=== PATIENT | female | born 1980 | race Caucasian/White ===

== ENCOUNTER 2017-08-18 08:30 | Day surgery (SDC) | payer MEDICAID ==
[2017-08-16 12:07] LABS: BASOPHILS # (AUTO) 0.1 X10'3 (0-0.2); EOSINOPHILS # (AUTO) 0.4 X10'3 (0-0.9); EOSINOPHILS % (AUTO) 4.1 % (0-6); HEMATOCRIT 36.7 % (35.0-45.0); LYMPHOCYTES # (AUTO) 2.4 X10'3 (1.1-4.8); LYMPHOCYTES % (AUTO) 24.1 % (21-51); MEAN CORPUSCULAR HEMOGLOBIN 32.4 PG (27.0-31.0); MEAN CORPUSCULAR HGB CONC 35.3 % (33.0-36.5); MEAN CORPUSCULAR VOLUME 91.7 FL (78-98); MEAN PLATELET VOLUME 7.5 FL (7.4-10.4); MONOCYTES # (AUTO) 0.4 X10'3 (0-0.9); MONOCYTES % (AUTO) 3.7 % (2-12); NEUTROPHILS # (AUTO) 6.6 X10'3 (1.8-7.7); NEUTROPHILS % (AUTO) 67.1 % (42-75); PLATELET COUNT 298 X10'3 (140-440); RED CELL DISTRIBUTION WIDTH 13.3 % (11.5-14.5); WHITE BLOOD COUNT 9.9 X10'3 (4.5-11.0)
[2017-08-16 12:17] LABS: PARTIAL THROMBOPLASTIN TIME 27 SECONDS (22-32)
[2017-08-16 12:24] LABS: ALANINE AMINOTRANSFERASE 51 U/L (12-78); ALBUMIN 3.6 G/DL (3.4-5.0); ALBUMIN/GLOBULIN RATIO 0.9 (1.1-1.5); ALKALINE PHOSPHATASE 69 IU/L (46-116); ANION GAP 10 (8-16); ASPARTATE AMINO TRANSFERASE 21 U/L (10-37); BILIRUBIN,TOTAL 0.3 MG/DL (0.1-1.0); BLOOD UREA NITROGEN 9 MG/DL (7-18); BUN/CREATININE RATIO 14.5 (6.6-38.0); CALCIUM 8.8 MG/DL (8.5-10.1); CHLORIDE 104 MMOL/L (99-107); CREATININE 0.62 MG/DL (0.40-0.90); GLUCOSE 96 MG/DL (70-104); POTASSIUM 4.2 MMOL/L (3.5-5.1); SODIUM 142 MMOL/L (135-145); TOTAL CARBON DIOXIDE 28.5 MMOL/L (24-32); TOTAL PROTEIN 7.5 G/DL (6.4-8.2); eGFR > 90 ML/MIN
[~2017-08-18] VITALS: Ht 154.9 cm; Wt 95.7 kg
[2017-08-18] VITALS (13 sets, daily range): BP systolic 95–133; BP diastolic 56–86
[~2017-08-18 08:30] MED LIST: CEPH500C5 PO; CYCL-1 PO; HYDR-565 PO; IBUP-1986 PO; ONDA4TAB6 PO; PHEN-716 PO
[2017-08-18] MEDS ORDERED: LORA-269 PO (09:03)
[2017-08-18] MEDS ORDERED: ASPI-1265 PO (09:03)
[2017-08-18] MEDS ORDERED: ERGO400C (09:03)
[2017-08-18] MEDS ORDERED: PANT-47 PO (09:03)
[2017-08-18] MEDS ORDERED: NITR0.4T51 SL (09:08)
[2017-08-18] MEDS ORDERED: HYDR-569 PO (09:08)
[2017-08-18] MEDS ORDERED: MESSAGE TO PHARMACY PO ONE (09:20)
[2017-08-18] MEDS ORDERED: simethicone 125mg capsule PO ONE (09:45)
[2017-08-18] MEDS ORDERED: diphenhydrAMINE 25mg capsule PO PRN (09:55)
[2017-08-18] MEDS ORDERED: normal saline 1000ml 1,000 ML IV SCH ×2 (09:55→12:00)
[2017-08-18] MEDS ORDERED: LORazepam 0.5 MG tablet PO PRN (09:55)
[2017-08-18] MEDS ORDERED: nitroGLYCERIN 0.4mg SUBLingual tab SL PRN (09:55)
[2017-08-18] MEDS ORDERED: iohexol 350 MG/ML 50ML vial IV ONE ×2 (10:19→10:32)
[2017-08-18] MEDS ORDERED: LIDOcaine 1%/PF (10mg/ml) 5ml vial ONE ×2 (10:19→10:32)
[2017-08-18] MEDS ORDERED: midazolam 2 mg/2 ml injection ONE ×2 (10:32→10:40)
[2017-08-18] MEDS ORDERED: iohexol 350MG/ML 100ml bottle IV ONE (10:32)
[2017-08-18] MEDS ORDERED: heparin 1,000 UNITS/NS 500ml 500 ML ONE ×2 (10:32)
[2017-08-18] MEDS ORDERED: fentaNYL/PF 50MCG/1 ML 2ML syringe ONE ×2 (10:32→10:39)
[2017-08-18] MEDS ORDERED: proCHLORperazine 10 MG/2 ml inj ONE (10:45)
[2017-08-18] MEDS ORDERED: ondansetron/PF 4mg/2ml inj IV PRN (12:00)
[2017-08-18] MEDS ORDERED: morphine 2 MG/ML inj. syringe IV PRN (12:00)
[2017-08-18] MEDS ORDERED: HYDROcodone/acetaminophen 10/325mg tab PO PRN (12:00)
[2017-08-18] MEDS ORDERED: HYDROcodone/acetaminophen 5mg/325mg tablet PO PRN (12:00)
[2017-08-18] MEDS ORDERED: OXAZEpam 15mg capsule PO PRN (12:00)
[2017-08-18] MEDS ORDERED: proCHLORperazine 10 MG/2 ml inj IV PRN (12:00)
[2017-08-18] MEDS ORDERED: ACETYLCYSTEINE 200 MG/1 ML 4 ML ORAL SOLUTION PO SCH (20:00)
== END 2017-08-18 17:51 | disposition home or self-care (01) ==
LOC: SSTAY O 08:30
PROVIDERS: ATTEND Internal Medicine Cardiovascular Disease
DX: I25.10 Atherosclerotic heart disease of native coronary artery without angina pectoris (principal); R94.39 Abnormal result of other cardiovascular function study; F41.8 Other specified anxiety disorders; F11.20 Opioid dependence, uncomplicated; F17.210 Nicotine dependence, cigarettes, uncomplicated; Z72.89 Other problems related to lifestyle; Z98.890 Other specified postprocedural states; Z79.01 Long term (current) use of anticoagulants
CPT/HCPCS: 36415; 71046; 80053; 85025; 85610; 85730; 93458; 99152; 99153; A6257; C1760; C1769; J0780; J1644; J2001; J2250; J3010; J7030; Q0163; Q9967; A4620

== ENCOUNTER 2018-05-12 16:46 | Emergency (ER) | payer MEDICAID ==
[~2018-05-12] VITALS: Ht 154.9 cm; Wt 95.5 kg
[~2018-05-12 16:46] MED LIST changes: +ASPI-1265 PO; -CEPH500C5 PO; -CYCL-1 PO; +ERGO400C; +HYDR-4383 PO; -HYDR-565 PO; -IBUP-1986 PO; +LORA-269 PO; +NITR0.4T51 SL; -ONDA4TAB6 PO; +PANT-47 PO; -PHEN-716 PO
[2018-05-12 17:07] VITALS: BP 119/83
[2018-05-12 17:33] LABS: BASOPHILS # (AUTO) 0.2 X10'3 (0-0.2); BASOPHILS % (AUTO) 1.3 % (0-1); EOSINOPHILS # (AUTO) 0.2 X10'3 (0-0.9); EOSINOPHILS % (AUTO) 1.8 % (0-6); HEMATOCRIT 37.9 % (35.0-45.0); MEAN CORPUSCULAR HEMOGLOBIN 31.9 PG (27.0-31.0); MEAN CORPUSCULAR HGB CONC 34.4 % (33.0-36.5); MEAN CORPUSCULAR VOLUME 92.9 FL (78-98); MEAN PLATELET VOLUME 7.7 FL (7.4-10.4); MONOCYTES # (AUTO) 0.4 X10'3 (0-0.9); MONOCYTES % (AUTO) 3.3 % (2-12); NEUTROPHILS # (AUTO) 8.1 X10'3 (1.8-7.7); NEUTROPHILS % (AUTO) 68.6 % (42-75); PLATELET COUNT 387 X10'3 (140-440); RED BLOOD COUNT 4.07 X10'6 (4.20-5.60); RED CELL DISTRIBUTION WIDTH 12.9 % (11.5-14.5); WHITE BLOOD COUNT 11.9 X10'3 (4.5-11.0)
[2018-05-12 17:51] LABS: ALANINE AMINOTRANSFERASE 47 U/L (12-78); ALBUMIN 3.8 G/DL (3.4-5.0); ALKALINE PHOSPHATASE 75 IU/L (46-116); ANION GAP 6 (8-16); ASPARTATE AMINO TRANSFERASE 23 U/L (10-37); BILIRUBIN,TOTAL 0.4 MG/DL (0.1-1.0); BLOOD UREA NITROGEN 15 MG/DL (7-18); BUN/CREATININE RATIO 20.5 (6.6-38.0); CALCIUM 9.4 MG/DL (8.5-10.1); CHLORIDE 101 MMOL/L (99-107); CREATININE 0.73 MG/DL (0.40-0.90); GLUCOSE 152 MG/DL (70-104); POTASSIUM 3.9 MMOL/L (3.5-5.1); SODIUM 136 MMOL/L (135-145); TOTAL CARBON DIOXIDE 28.8 MMOL/L (24-32); TOTAL PROTEIN 7.7 G/DL (6.4-8.2); eGFR 89 ML/MIN
[2018-05-12 18:33] LABS: PARTIAL THROMBOPLASTIN TIME 29 SECONDS (22-32); PROTHROMBIN TIME 10.5 SECONDS (9.0-12.0)
== END 2018-05-12 18:22 | disposition home or self-care (01) ==
LOC: ER 16:47
DX: R00.2 Palpitations (principal); R73.9 Hyperglycemia, unspecified; R42 Dizziness and giddiness; G89.29 Other chronic pain; Z90.49 Acquired absence of other specified parts of digestive tract; Z98.51 Tubal ligation status; Z79.82 Long term (current) use of aspirin; Z79.899 Other long term (current) drug therapy
CPT/HCPCS: 36415; 71045; 80053; 84484; 85025; 85610; 85730; 93005; 99284

== ENCOUNTER 2018-05-26 14:41 | Emergency (ER) | payer MEDICAID ==
[~2018-05-26] VITALS: Ht 154.9 cm; Wt 95.5 kg
[2018-05-26 14:57] VITALS: BP 118/74
== END 2018-05-26 18:30 | disposition left against medical advice (07) ==
LOC: ER 14:41
DX: R55 Syncope and collapse (principal); Z53.21 Procedure and treatment not carried out due to patient leaving prior to being seen by health care provider
CPT/HCPCS: 82948; 93005; 99281

== ENCOUNTER 2018-06-19 23:02 | Emergency (ER) | payer MEDICAID, OTHER ==
[~2018-06-19] VITALS: Ht 154.9 cm; Wt 93.9 kg
[2018-06-19 23:37] LABS: BASOPHILS # (AUTO) 0.1 X10'3 (0-0.2); BASOPHILS % (AUTO) 0.6 % (0-1); EOSINOPHILS # (AUTO) 0.2 X10'3 (0-0.9); HEMATOCRIT 37.6 % (35.0-45.0); HEMOGLOBIN 12.6 g/dl (12.0-16.0); LYMPHOCYTES # (AUTO) 4.2 X10'3 (1.1-4.8); LYMPHOCYTES % (AUTO) 33.9 % (21-51); MEAN CORPUSCULAR HEMOGLOBIN 31.3 PG (27.0-31.0); MEAN CORPUSCULAR HGB CONC 33.4 % (33.0-36.5); MEAN CORPUSCULAR VOLUME 93.8 FL (78-98); MEAN PLATELET VOLUME 7.6 FL (7.4-10.4); MONOCYTES # (AUTO) 0.7 X10'3 (0-0.9); MONOCYTES % (AUTO) 5.7 % (2-12); NEUTROPHILS # (AUTO) 7.1 X10'3 (1.8-7.7); NEUTROPHILS % (AUTO) 57.8 % (42-75); PLATELET COUNT 357 X10'3 (140-440); RED BLOOD COUNT 4.01 X10'6 (4.20-5.60); RED CELL DISTRIBUTION WIDTH 13.7 % (11.5-14.5); WHITE BLOOD COUNT 12.3 X10'3 (4.5-11.0)
[2018-06-19] MEDS ORDERED: DICL25TA10 (23:42)
[2018-06-19] MEDS ORDERED: LORA0.5T PO (23:42)
[2018-06-19] MEDS ORDERED: OMEP20CA10 PO (23:42)
[2018-06-19] MEDS ORDERED: PROP40TA72 PO (23:42)
[2018-06-19 23:46] LABS: PARTIAL THROMBOPLASTIN TIME 28 SECONDS (22-32)
[2018-06-19 23:53] LABS: ALANINE AMINOTRANSFERASE 38 U/L (12-78); ALBUMIN 3.5 G/DL (3.4-5.0); ALBUMIN/GLOBULIN RATIO 0.9 (1.1-1.5); ALKALINE PHOSPHATASE 81 IU/L (46-116); ANION GAP 12 (8-16); ASPARTATE AMINO TRANSFERASE 15 U/L (10-37); BILIRUBIN,TOTAL 0.3 MG/DL (0.1-1.0); BLOOD UREA NITROGEN 12 MG/DL (7-18); BUN/CREATININE RATIO 17.6 (6.6-38.0); CALCIUM 8.6 MG/DL (8.5-10.1); CHLORIDE 103 MMOL/L (99-107); CREATININE 0.68 MG/DL (0.40-0.90); GLUCOSE 100 MG/DL (70-104); POTASSIUM 3.8 MMOL/L (3.5-5.1); SODIUM 140 MMOL/L (135-145); TOTAL CARBON DIOXIDE 25.2 MMOL/L (24-32); TOTAL PROTEIN 7.4 G/DL (6.4-8.2); eGFR > 90 ML/MIN
[2018-06-20 00:58] VITALS: BP 128/84
== END 2018-06-20 01:01 | disposition home or self-care (01) ==
LOC: ER 23:02
DX: R07.89 Other chest pain (principal); R11.0 Nausea; G89.29 Other chronic pain; Z90.49 Acquired absence of other specified parts of digestive tract; Z98.51 Tubal ligation status; Z79.899 Other long term (current) drug therapy
CPT/HCPCS: 36415; 71045; 80053; 84484; 85025; 85610; 85730; 93005; 99284

== ENCOUNTER 2018-08-19 09:09 | Emergency (ER) | payer MEDICAID ==
[~2018-08-19] VITALS: Ht 154.9 cm; Wt 98.0 kg
[~2018-08-19 09:09] MED LIST changes: -ASPI-1265 PO; +DICL25TA10; -LORA-269 PO; +LORA0.5T PO; +OMEP20CA10 PO; -PANT-47 PO; +PROP40TA72 PO
[2018-08-19] MEDS ORDERED: normal saline 1000ml 1,000 ML IV ONE (10:20)
[2018-08-19 10:29] LABS: BASOPHILS # (AUTO) 0.1 X10'3 (0-0.2); EOSINOPHILS # (AUTO) 0.1 X10'3 (0-0.9); HEMATOCRIT 37.4 % (35.0-45.0); HEMOGLOBIN 12.8 g/dl (12.0-16.0); LYMPHOCYTES # (AUTO) 2.1 X10'3 (1.1-4.8); LYMPHOCYTES % (AUTO) 20.8 % (21-51); MEAN CORPUSCULAR HEMOGLOBIN 32.1 PG (27.0-31.0); MEAN CORPUSCULAR HGB CONC 34.1 g/dL (33.0-36.5); MEAN CORPUSCULAR VOLUME 94.1 FL (78-98); MEAN PLATELET VOLUME 7.6 FL (7.4-10.4); MONOCYTES # (AUTO) 0.6 X10'3 (0-0.9); MONOCYTES % (AUTO) 5.4 % (2-12); NEUTROPHILS # (AUTO) 7.3 X10'3 (1.8-7.7); NEUTROPHILS % (AUTO) 71.8 % (42-75); PLATELET COUNT 331 X10'3 (140-440); RED BLOOD COUNT 3.98 X10'6 (4.20-5.60); RED CELL DISTRIBUTION WIDTH 13.3 % (11.5-14.5); WHITE BLOOD COUNT 10.2 X10'3 (4.5-11.0)
[2018-08-19 10:30] LABS: CLARITY,URINE CLEAR (Clear); COLOR,URINE YELLOW (Yellow); GLUCOSE, URINE NEGATIVE (Neg); KETONES,URINE NEGATIVE (Neg); LEUKOCYTE ESTERASE ,URINE NEGATIVE (Neg); NITRITES, URINE NEGATIVE (Neg); OCCULT BLOOD,URINE MODERATE (Neg); PROTEIN,URINE NEGATIVE (Neg); UROBILINOGEN,URINE 0.2 E.U/dL (0.2-1.0)
[2018-08-19 10:34] LABS: UA COLLECTION TYPE CLN CATCH MIDSTREAM
[2018-08-19 10:36] LABS: RBC,URINE NONE SEEN /HPF (0-2); WBC,URINE NONE SEEN /HPF (0-4)
[2018-08-19 10:37] LABS: BACTERIA,URINE NONE SEEN /HPF (Neg); SQUAMOUS EPITHELIAL CELL,UR FEW /LPF (FEW)
[2018-08-19 10:45] LABS: ALANINE AMINOTRANSFERASE 38 U/L (12-78); ALBUMIN 3.8 G/DL (3.4-5.0); ALKALINE PHOSPHATASE 90 IU/L (46-116); ANION GAP 10 (8-16); ASPARTATE AMINO TRANSFERASE 16 U/L (10-37); BILIRUBIN,TOTAL 0.2 MG/DL (0.1-1.0); BLOOD UREA NITROGEN 17 MG/DL (7-18); BUN/CREATININE RATIO 19.8 (6.6-38.0); CALCIUM 8.8 MG/DL (8.5-10.1); CHLORIDE 104 MMOL/L (99-107); CREATININE 0.86 MG/DL (0.40-0.90); GLUCOSE 104 MG/DL (70-104); POTASSIUM 4.2 MMOL/L (3.5-5.1); SODIUM 138 MMOL/L (135-145); TOTAL CARBON DIOXIDE 23.8 MMOL/L (24-32); TOTAL PROTEIN 7.6 G/DL (6.4-8.2); eGFR 74 ML/MIN
[2018-08-19] MEDS ORDERED: dexamethasone sod phosphate 10mg/ml inj IV STA (12:11)
[2018-08-19] MEDS ORDERED: ALBU18HF2 INH (12:14)
[2018-08-19] MEDS ORDERED: albuterol 2.5 MG/3 ML nebule NEB ONE (12:15)
[2018-08-19] MEDS ORDERED: ondansetron/PF 4mg/2ml inj IV ONE (13:00)
[2018-08-19 13:05] VITALS: BP 118/74
== END 2018-08-19 13:11 | disposition home or self-care (01) ==
LOC: ER 09:10
DX: J20.9 Acute bronchitis, unspecified (principal); G89.29 Other chronic pain; Z90.49 Acquired absence of other specified parts of digestive tract; Z98.51 Tubal ligation status; Z79.899 Other long term (current) drug therapy
CPT/HCPCS: 36415; 71045; 80053; 81001; 83880; 84484; 85025; 93005; 94640; 94760; 96374; 96375; 99284; J1100; J2405; J7030

== ENCOUNTER 2018-09-14 18:47 | Emergency (ER) | payer MEDICAID ==
[~2018-09-14] VITALS: Ht 154.9 cm; Wt 95.2 kg
[~2018-09-14 18:47] MED LIST changes: +ALBU18HF2 INH
[2018-09-14 19:21] LABS: BASOPHILS # (AUTO) 0.1 X10'3 (0-0.2); BASOPHILS % (AUTO) 0.8 % (0-1); EOSINOPHILS # (AUTO) 0.2 X10'3 (0-0.9); EOSINOPHILS % (AUTO) 1.6 % (0-6); HEMATOCRIT 36.7 % (35.0-45.0); HEMOGLOBIN 12.7 g/dl (12.0-16.0); LYMPHOCYTES # (AUTO) 2.7 X10'3 (1.1-4.8); LYMPHOCYTES % (AUTO) 28.6 % (21-51); MEAN CORPUSCULAR HEMOGLOBIN 32.6 PG (27.0-31.0); MEAN CORPUSCULAR HGB CONC 34.7 g/dL (33.0-36.5); MEAN CORPUSCULAR VOLUME 94.1 FL (78-98); MEAN PLATELET VOLUME 7.1 FL (7.4-10.4); MONOCYTES # (AUTO) 0.4 X10'3 (0-0.9); MONOCYTES % (AUTO) 4.1 % (2-12); NEUTROPHILS # (AUTO) 6.2 X10'3 (1.8-7.7); NEUTROPHILS % (AUTO) 64.9 % (42-75); PLATELET COUNT 366 X10'3 (140-440); RED CELL DISTRIBUTION WIDTH 13.3 % (11.5-14.5); WHITE BLOOD COUNT 9.5 X10'3 (4.5-11.0)
[2018-09-14 19:29] LABS: PARTIAL THROMBOPLASTIN TIME 28 SECONDS (22-32); PROTHROMBIN TIME 10.1 SECONDS (9.0-12.0)
[2018-09-14 19:31] LABS: ALANINE AMINOTRANSFERASE 52 U/L (12-78); ALBUMIN 3.7 G/DL (3.4-5.0); ALBUMIN/GLOBULIN RATIO 0.9 (1.1-1.5); ALKALINE PHOSPHATASE 82 IU/L (46-116); ANION GAP 7 (8-16); ASPARTATE AMINO TRANSFERASE 30 U/L (10-37); BILIRUBIN,TOTAL 0.4 MG/DL (0.1-1.0); BLOOD UREA NITROGEN 9 MG/DL (7-18); BUN/CREATININE RATIO 12.3 (6.6-38.0); CHLORIDE 103 MMOL/L (99-107); CREATININE 0.73 MG/DL (0.40-0.90); GLUCOSE 91 MG/DL (70-104); POTASSIUM 3.7 MMOL/L (3.5-5.1); SODIUM 138 MMOL/L (135-145); TOTAL CARBON DIOXIDE 27.7 MMOL/L (24-32); TOTAL PROTEIN 7.6 G/DL (6.4-8.2); eGFR 89 ML/MIN
[2018-09-14] MEDS ORDERED: mag hydrox/Alum hydrox/simeth 30ml oral suspension PO ONE (19:45)
[2018-09-14] MEDS ORDERED: ketorolac trometh inj. 60 MG/2 ML VIAL IM ONE (19:45)
[2018-09-14] MEDS ORDERED: LIDOcaine Viscous 15ml cup PO ONE (19:45)
[2018-09-14] MEDS ORDERED: ESOM40CA PO (20:27)
[2018-09-14 20:31] VITALS: BP 146/85
== END 2018-09-14 20:34 | disposition home or self-care (01) ==
LOC: ER 18:47
DX: R07.89 Other chest pain (principal); R10.13 Epigastric pain; R20.0 Anesthesia of skin; M25.512 Pain in left shoulder; G89.29 Other chronic pain; Z87.442 Personal history of urinary calculi; Z90.49 Acquired absence of other specified parts of digestive tract; Z98.51 Tubal ligation status; Z79.899 Other long term (current) drug therapy
CPT/HCPCS: 36415; 71045; 80053; 84484; 85025; 85610; 85730; 93005; 96372; 99284; J1885

== ENCOUNTER 2018-11-19 14:24 | Emergency (ER) | payer MEDICAID ==
[~2018-11-19] VITALS: Ht 154.9 cm; Wt 97.2 kg
[~2018-11-19 14:24] MED LIST changes: +BISA-155 PO; -OMEP20CA10 PO; +OMEP20CA11 PO
[2018-11-19 15:07] LABS: BASOPHILS # (AUTO) 0.1 X10'3 (0-0.2); BASOPHILS % (AUTO) 0.9 % (0-1); EOSINOPHILS # (AUTO) 0.3 X10'3 (0-0.9); EOSINOPHILS % (AUTO) 3.3 % (0-6); HEMATOCRIT 34.2 % (35.0-45.0); HEMOGLOBIN 11.9 g/dl (12.0-16.0); LYMPHOCYTES # (AUTO) 3.6 X10'3 (1.1-4.8); LYMPHOCYTES % (AUTO) 35.3 % (21-51); MEAN CORPUSCULAR HEMOGLOBIN 33.4 PG (27.0-31.0); MEAN CORPUSCULAR HGB CONC 34.7 g/dL (33.0-36.5); MEAN CORPUSCULAR VOLUME 96.1 FL (78-98); MEAN PLATELET VOLUME 7.2 FL (7.4-10.4); MONOCYTES # (AUTO) 0.4 X10'3 (0-0.9); MONOCYTES % (AUTO) 4.2 % (2-12); NEUTROPHILS # (AUTO) 5.7 X10'3 (1.8-7.7); NEUTROPHILS % (AUTO) 56.3 % (42-75); PLATELET COUNT 301 X10'3 (140-440); RED BLOOD COUNT 3.57 X10'6 (4.20-5.60); RED CELL DISTRIBUTION WIDTH 13.2 % (11.5-14.5); WHITE BLOOD COUNT 10.1 X10'3 (4.5-11.0)
[2018-11-19 15:09] LABS: CLARITY,URINE CLEAR (Clear); COLOR,URINE STRAW (Yellow); GLUCOSE, URINE NEGATIVE (Neg); KETONES,URINE NEGATIVE (Neg); LEUKOCYTE ESTERASE ,URINE NEGATIVE (Neg); NITRITES, URINE NEGATIVE (Neg); OCCULT BLOOD,URINE MODERATE (Neg); PROTEIN,URINE NEGATIVE (Neg); UROBILINOGEN,URINE 0.2 E.U/dL (0.2-1.0)
[2018-11-19 15:10] LABS: URINE HCG NEGATIVE (NEG)
[2018-11-19 15:15] LABS: UA COLLECTION TYPE CLN CATCH MIDSTREAM; WBC,URINE NONE SEEN /HPF (0-4)
[2018-11-19 15:16] LABS: BACTERIA,URINE NONE SEEN /HPF (Neg); MUCUS STRANDS NONE SEEN /LPF (Neg); RBC,URINE 0-2 /HPF (0-2); SQUAMOUS EPITHELIAL CELL,UR FEW /LPF (FEW)
[2018-11-19 15:23] LABS: ALANINE AMINOTRANSFERASE 27 U/L (12-78); ALBUMIN 3.4 G/DL (3.4-5.0); ALBUMIN/GLOBULIN RATIO 0.9 (1.1-1.5); ALKALINE PHOSPHATASE 76 IU/L (46-116); ANION GAP 7 (8-16); ASPARTATE AMINO TRANSFERASE 11 U/L (10-37); BILIRUBIN,TOTAL 0.2 MG/DL (0.1-1.0); BLOOD UREA NITROGEN 9 MG/DL (7-18); CALCIUM 8.4 MG/DL (8.5-10.1); CHLORIDE 106 MMOL/L (99-107); GLUCOSE 117 MG/DL (70-104); POTASSIUM 3.8 MMOL/L (3.5-5.1); SODIUM 138 MMOL/L (135-145); TOTAL CARBON DIOXIDE 25.5 MMOL/L (24-32); eGFR 62 ML/MIN
[2018-11-19 15:27] LABS: PARTIAL THROMBOPLASTIN TIME 27 SECONDS (22-32)
[2018-11-19] MEDS ORDERED: ondansetron 4mg rapidly disintigrating tab PO ONE (16:35)
[2018-11-19] MEDS ORDERED: mag hydrox/Alum hydrox/simeth 30ml oral suspension PO ONE (16:35)
[2018-11-19] MEDS ORDERED: LIDOcaine Viscous 15ml cup MM PRN (16:35)
[2018-11-19 17:00] LABS: LIPASE 108 U/L (73-393)
[2018-11-19 17:55] VITALS: BP 126/88
== END 2018-11-19 17:58 | disposition home or self-care (01) ==
LOC: ER 14:25
DX: R10.13 Epigastric pain (principal); R19.7 Diarrhea, unspecified; R06.02 Shortness of breath; E78.00 Pure hypercholesterolemia, unspecified; I10 Essential (primary) hypertension; G89.29 Other chronic pain; Z90.49 Acquired absence of other specified parts of digestive tract; Z98.51 Tubal ligation status; Z88.5 Allergy status to narcotic agent; Z88.8 Allergy status to other drugs, medicaments and biological substances; Z79.899 Other long term (current) drug therapy
CPT/HCPCS: 36415; 71045; 80053; 81001; 81025; 83690; 83880; 84484; 85025; 85610; 85730; 93005; 99284

== ENCOUNTER 2018-12-26 10:07 | Emergency (ER) | payer MEDICAID ==
[~2018-12-26] VITALS: Ht 154.9 cm; Wt 94.3 kg
[2018-12-26 10:45] VITALS: BP 114/71
[2018-12-26 10:48] LABS: BASOPHILS # (AUTO) 0.1 X10'3 (0-0.2); BASOPHILS % (AUTO) 0.6 % (0-1); EOSINOPHILS # (AUTO) 0.2 X10'3 (0-0.9); EOSINOPHILS % (AUTO) 1.7 % (0-6); HEMATOCRIT 38.7 % (35.0-45.0); HEMOGLOBIN 13.1 g/dl (12.0-16.0); LYMPHOCYTES # (AUTO) 3.6 X10'3 (1.1-4.8); LYMPHOCYTES % (AUTO) 30.9 % (21-51); MEAN CORPUSCULAR HEMOGLOBIN 32.7 PG (27.0-31.0); MEAN CORPUSCULAR HGB CONC 33.9 g/dL (33.0-36.5); MEAN CORPUSCULAR VOLUME 96.5 FL (78-98); MEAN PLATELET VOLUME 7.2 FL (7.4-10.4); MONOCYTES # (AUTO) 0.6 X10'3 (0-0.9); MONOCYTES % (AUTO) 5.2 % (2-12); NEUTROPHILS # (AUTO) 7.2 X10'3 (1.8-7.7); NEUTROPHILS % (AUTO) 61.6 % (42-75); PLATELET COUNT 421 X10'3 (140-440); RED BLOOD COUNT 4.01 X10'6 (4.20-5.60); RED CELL DISTRIBUTION WIDTH 13.1 % (11.5-14.5); WHITE BLOOD COUNT 11.6 X10'3 (4.5-11.0)
[2018-12-26 10:58] LABS: PARTIAL THROMBOPLASTIN TIME 30 SECONDS (22-32)
[2018-12-26 11:00] LABS: ALANINE AMINOTRANSFERASE 54 U/L (12-78); ALBUMIN 3.8 G/DL (3.4-5.0); ALKALINE PHOSPHATASE 91 IU/L (46-116); ANION GAP 11 (8-16); ASPARTATE AMINO TRANSFERASE 18 U/L (10-37); BILIRUBIN,TOTAL 0.2 MG/DL (0.1-1.0); BLOOD UREA NITROGEN 8 MG/DL (7-18); BUN/CREATININE RATIO 10.3 (6.6-38.0); CALCIUM 8.7 MG/DL (8.5-10.1); CHLORIDE 104 MMOL/L (99-107); CREATININE 0.78 MG/DL (0.40-0.90); GLUCOSE 100 MG/DL (70-104); SODIUM 139 MMOL/L (135-145); TOTAL CARBON DIOXIDE 24.2 MMOL/L (24-32); TOTAL PROTEIN 7.8 G/DL (6.4-8.2); eGFR 82 ML/MIN
== END 2018-12-26 11:30 | disposition home or self-care (01) ==
LOC: ER 10:08
DX: R06.02 Shortness of breath (principal); F41.9 Anxiety disorder, unspecified; I10 Essential (primary) hypertension; E78.00 Pure hypercholesterolemia, unspecified; G89.29 Other chronic pain; Z88.8 Allergy status to other drugs, medicaments and biological substances; Z88.6 Allergy status to analgesic agent; Z79.899 Other long term (current) drug therapy; Z98.51 Tubal ligation status; Z85.41 Personal history of malignant neoplasm of cervix uteri; Z87.19 Personal history of other diseases of the digestive system; Z90.49 Acquired absence of other specified parts of digestive tract
CPT/HCPCS: 36415; 71045; 80053; 84484; 85025; 85610; 85730; 93005; 99284

== ENCOUNTER 2019-01-02 23:09 | Emergency (ER) | payer MEDICAID ==
[~2019-01-02] VITALS: Ht 154.9 cm; Wt 99.0 kg
[2019-01-02 23:41] LABS: BASOPHILS # (AUTO) 0.1 X10'3 (0-0.2); BASOPHILS % (AUTO) 0.7 % (0-1); EOSINOPHILS # (AUTO) 0.2 X10'3 (0-0.9); EOSINOPHILS % (AUTO) 2.5 % (0-6); HEMATOCRIT 34.9 % (35.0-45.0); HEMOGLOBIN 12.1 g/dl (12.0-16.0); LYMPHOCYTES # (AUTO) 3.1 X10'3 (1.1-4.8); LYMPHOCYTES % (AUTO) 32.9 % (21-51); MEAN CORPUSCULAR HEMOGLOBIN 33.5 PG (27.0-31.0); MEAN CORPUSCULAR HGB CONC 34.6 g/dL (33.0-36.5); MEAN CORPUSCULAR VOLUME 96.7 FL (78-98); MEAN PLATELET VOLUME 7.4 FL (7.4-10.4); MONOCYTES # (AUTO) 0.4 X10'3 (0-0.9); MONOCYTES % (AUTO) 4.8 % (2-12); NEUTROPHILS # (AUTO) 5.5 X10'3 (1.8-7.7); NEUTROPHILS % (AUTO) 59.1 % (42-75); PLATELET COUNT 283 X10'3 (140-440); RED BLOOD COUNT 3.61 X10'6 (4.20-5.60); WHITE BLOOD COUNT 9.4 X10'3 (4.5-11.0)
[2019-01-02 23:53] LABS: ALANINE AMINOTRANSFERASE 41 U/L (12-78); ALBUMIN 3.3 G/DL (3.4-5.0); ALBUMIN/GLOBULIN RATIO 0.9 (1.1-1.5); ALKALINE PHOSPHATASE 81 IU/L (46-116); ANION GAP 10 (8-16); ASPARTATE AMINO TRANSFERASE 13 U/L (10-37); BILIRUBIN,TOTAL 0.2 MG/DL (0.1-1.0); BLOOD UREA NITROGEN 17 MG/DL (7-18); BUN/CREATININE RATIO 23.9 (6.6-38.0); CALCIUM 8.6 MG/DL (8.5-10.1); CHLORIDE 102 MMOL/L (99-107); CREATININE 0.71 MG/DL (0.40-0.90); GLUCOSE 103 MG/DL (70-104); PARTIAL THROMBOPLASTIN TIME 28 SECONDS (22-32); POTASSIUM 3.6 MMOL/L (3.5-5.1); SODIUM 137 MMOL/L (135-145); TOTAL CARBON DIOXIDE 25.4 MMOL/L (24-32); TOTAL PROTEIN 7.1 G/DL (6.4-8.2); eGFR > 90 ML/MIN
[2019-01-03 01:42] VITALS: BP 136/70
== END 2019-01-03 02:40 | disposition home or self-care (01) ==
LOC: ER 23:09
DX: R00.2 Palpitations (principal); E78.00 Pure hypercholesterolemia, unspecified; I10 Essential (primary) hypertension; G89.29 Other chronic pain; F41.9 Anxiety disorder, unspecified; F10.99 Alcohol use, unspecified with unspecified alcohol-induced disorder; R79.1 Abnormal coagulation profile; Z87.442 Personal history of urinary calculi; Z90.49 Acquired absence of other specified parts of digestive tract; Z98.51 Tubal ligation status; Z88.5 Allergy status to narcotic agent; Z88.8 Allergy status to other drugs, medicaments and biological substances; Z79.899 Other long term (current) drug therapy; Y90.9 Presence of alcohol in blood, level not specified
CPT/HCPCS: 36415; 71045; 80053; 84484; 85025; 85610; 85730; 93005; 99284

== ENCOUNTER 2019-02-01 07:37 | Emergency (ER) | payer MEDICAID ==
[~2019-02-01] VITALS: Ht 154.9 cm; Wt 97.8 kg
[2019-02-01 07:38] VITALS: BP 150/81
[2019-02-01] MEDS ORDERED: CYCL-1 PO (08:05)
[2019-02-01] MEDS ORDERED: METH4TAB3 PO (08:05)
[2019-02-01] MEDS ORDERED: ketorolac trometh inj. 60 MG/2 ML VIAL IM ONE (08:05)
== END 2019-02-01 08:26 | disposition home or self-care (01) ==
LOC: ER 07:37
DX: M54.5 Low back pain (principal); M53.86 Other specified dorsopathies, lumbar region; G89.29 Other chronic pain; E78.00 Pure hypercholesterolemia, unspecified; I10 Essential (primary) hypertension; F41.9 Anxiety disorder, unspecified; F10.99 Alcohol use, unspecified with unspecified alcohol-induced disorder; Z87.442 Personal history of urinary calculi; Z90.49 Acquired absence of other specified parts of digestive tract; Z98.51 Tubal ligation status; Z88.5 Allergy status to narcotic agent; Z88.8 Allergy status to other drugs, medicaments and biological substances; Z79.899 Other long term (current) drug therapy; Y90.9 Presence of alcohol in blood, level not specified
CPT/HCPCS: 96372; 99284; J1885

== ENCOUNTER 2019-03-07 18:55 | Emergency (ER) | payer MEDICAID, OTHER ==
[~2019-03-07] VITALS: Ht 154.9 cm; Wt 96.4 kg
[~2019-03-07 18:55] MED LIST changes: +CYCL-1 PO; +METH4TAB3 PO
[2019-03-07 19:26] LABS: BASOPHILS # (AUTO) 0.1 X10'3 (0-0.2); EOSINOPHILS # (AUTO) 0.2 X10'3 (0-0.9); EOSINOPHILS % (AUTO) 1.8 % (0-6); HEMATOCRIT 37.5 % (35.0-45.0); LYMPHOCYTES % (AUTO) 27.7 % (21-51); MEAN CORPUSCULAR HEMOGLOBIN 32.6 PG (27.0-31.0); MEAN CORPUSCULAR HGB CONC 34.6 g/dL (33.0-36.5); MEAN CORPUSCULAR VOLUME 94.2 FL (78-98); MEAN PLATELET VOLUME 7.2 FL (7.4-10.4); MONOCYTES # (AUTO) 0.5 X10'3 (0-0.9); NEUTROPHILS # (AUTO) 6.9 X10'3 (1.8-7.7); NEUTROPHILS % (AUTO) 64.5 % (42-75); PLATELET COUNT 309 X10'3 (140-440); RED BLOOD COUNT 3.98 X10'6 (4.20-5.60); RED CELL DISTRIBUTION WIDTH 13.5 % (11.5-14.5); WHITE BLOOD COUNT 10.7 X10'3 (4.5-11.0)
[2019-03-07 19:34] LABS: ALANINE AMINOTRANSFERASE 32 U/L (12-78); ALBUMIN 3.6 G/DL (3.4-5.0); ALBUMIN/GLOBULIN RATIO 0.9 (1.1-1.5); ALKALINE PHOSPHATASE 97 IU/L (46-116); ANION GAP 12 (8-16); ASPARTATE AMINO TRANSFERASE 10 U/L (10-37); BILIRUBIN,TOTAL 0.2 MG/DL (0.1-1.0); BLOOD UREA NITROGEN 16 MG/DL (7-18); BUN/CREATININE RATIO 21.3 (6.6-38.0); CALCIUM 8.7 MG/DL (8.5-10.1); CHLORIDE 103 MMOL/L (99-107); CREATININE 0.75 MG/DL (0.40-0.90); POTASSIUM 3.9 MMOL/L (3.5-5.1); SODIUM 140 MMOL/L (135-145); TOTAL CARBON DIOXIDE 25.2 MMOL/L (24-32); TOTAL PROTEIN 7.6 G/DL (6.4-8.2); eGFR 86 ML/MIN
[2019-03-07 19:37] LABS: PARTIAL THROMBOPLASTIN TIME 25 SECONDS (22-32)
[2019-03-07 19:38] LABS: GLUCOSE 151 MG/DL (70-104)
[2019-03-07] MEDS ORDERED: METO-539 PO (20:03)
--- NOTE | 2019-03-07 20:06 | NUR ---
DR ESPITIA AT BEDSIDE TO SEE PT . DISCUSSED POC AND NEW MEDICATION. EDUCATED ON WHY THE PT NEED TO TAKE THE MEDICINE. PT VERBALIZES UNDERSTANDING AND WILLINGNESS TO START NEW MEDICATION TO HELP HER CARDIAC FUNCTION. PT VERBALIZES UNDERSTANDING ON THE NEED TO FOLLOW UP WITH PRIMARY CARE PROVIDER AND OUTDOOR STUDIES PROFESSOR
[2019-03-07 20:17] VITALS: BP 110/74
== END 2019-03-07 20:20 | disposition home or self-care (01) ==
LOC: ER 18:55
DX: R00.2 Palpitations (principal); I49.3 Ventricular premature depolarization; E78.00 Pure hypercholesterolemia, unspecified; I10 Essential (primary) hypertension; G89.29 Other chronic pain; F41.9 Anxiety disorder, unspecified; C53.9 Malignant neoplasm of cervix uteri, unspecified; Z87.442 Personal history of urinary calculi; Z98.51 Tubal ligation status; Z90.49 Acquired absence of other specified parts of digestive tract; Z88.6 Allergy status to analgesic agent; Z88.5 Allergy status to narcotic agent; Z79.899 Other long term (current) drug therapy
CPT/HCPCS: 36415; 71045; 80053; 84484; 85025; 85610; 85730; 93005; 99284

== ENCOUNTER 2019-04-13 07:46 | Emergency (ER) | payer OTHER ==
[~2019-04-13] VITALS: Ht 154.9 cm; Wt 97.0 kg
[~2019-04-13 07:46] MED LIST changes: -ALBU18HF2 INH; -BISA-155 PO; -CYCL-1 PO; -DICL25TA10; -HYDR-4383 PO; -METH4TAB3 PO; -OMEP20CA11 PO; -PROP40TA72 PO
[2019-04-13 07:47] VITALS: BP 120/79
[2019-04-13] MEDS ORDERED: dexamethasone sod phosphate 10mg/ml inj PO STA (08:15)
[2019-04-13] MEDS ORDERED: BENZ-16 PO (08:16)
[2019-04-13] MEDS ORDERED: AZIT250T PO (08:16)
== END 2019-04-13 08:45 | disposition home or self-care (01) ==
LOC: ER 07:47
DX: J06.9 Acute upper respiratory infection, unspecified (principal); E78.00 Pure hypercholesterolemia, unspecified; I10 Essential (primary) hypertension; G89.29 Other chronic pain; F41.9 Anxiety disorder, unspecified; E66.9 Obesity, unspecified; Z90.49 Acquired absence of other specified parts of digestive tract; Z98.51 Tubal ligation status; Z88.5 Allergy status to narcotic agent; Z88.8 Allergy status to other drugs, medicaments and biological substances; Z79.899 Other long term (current) drug therapy
CPT/HCPCS: 99282; J1100

== ENCOUNTER 2019-05-12 13:34 | Emergency (ER) | payer MEDICAID ==
[~2019-05-12] VITALS: Ht 154.9 cm; Wt 100.0 kg
[~2019-05-12 13:34] MED LIST changes: -ERGO400C; -NITR0.4T51 SL
[2019-05-12 15:49] LABS: BASOPHILS # (AUTO) 0.1 X10'3 (0-0.2); BASOPHILS % (AUTO) 0.8 % (0-1); EOSINOPHILS # (AUTO) 0.2 X10'3 (0-0.9); EOSINOPHILS % (AUTO) 1.4 % (0-6); HEMATOCRIT 37.1 % (35.0-45.0); HEMOGLOBIN 12.7 g/dl (12.0-16.0); LYMPHOCYTES # (AUTO) 3.2 X10'3 (1.1-4.8); LYMPHOCYTES % (AUTO) 28.1 % (21-51); MEAN CORPUSCULAR HEMOGLOBIN 32.8 PG (27.0-31.0); MEAN CORPUSCULAR HGB CONC 34.2 g/dL (33.0-36.5); MEAN CORPUSCULAR VOLUME 95.8 FL (78-98); MEAN PLATELET VOLUME 6.8 FL (7.4-10.4); MONOCYTES # (AUTO) 0.6 X10'3 (0-0.9); MONOCYTES % (AUTO) 5.5 % (2-12); NEUTROPHILS # (AUTO) 7.3 X10'3 (1.8-7.7); NEUTROPHILS % (AUTO) 64.2 % (42-75); PLATELET COUNT 360 X10'3 (140-440); RED BLOOD COUNT 3.87 X10'6 (4.20-5.60); RED CELL DISTRIBUTION WIDTH 13.9 % (11.5-14.5); WHITE BLOOD COUNT 11.4 X10'3 (4.5-11.0)
[2019-05-12 16:04] LABS: ALANINE AMINOTRANSFERASE 28 U/L (12-78); ALBUMIN 3.7 G/DL (3.4-5.0); ALKALINE PHOSPHATASE 83 IU/L (46-116); ANION GAP 9 (8-16); ASPARTATE AMINO TRANSFERASE 17 U/L (10-37); BILIRUBIN,TOTAL 0.3 MG/DL (0.1-1.0); BLOOD UREA NITROGEN 9 MG/DL (7-18); BUN/CREATININE RATIO 12.7 (6.6-38.0); CALCIUM 8.7 MG/DL (8.5-10.1); CHLORIDE 104 MMOL/L (99-107); CREATININE 0.71 MG/DL (0.40-0.90); GLUCOSE 92 MG/DL (70-104); MAGNESIUM 1.6 MG/DL (1.5-2.4); SODIUM 141 MMOL/L (135-145); TOTAL CARBON DIOXIDE 28.1 MMOL/L (24-32); TOTAL PROTEIN 7.5 G/DL (6.4-8.2); eGFR > 90 ML/MIN
[2019-05-12] MEDS ORDERED: ONDA4TAB12 PO (16:24)
[2019-05-12] MEDS ORDERED: ondansetron 4mg rapidly disintigrating tab PO ONE (16:25)
[2019-05-12 16:43] VITALS: BP 141/82
== END 2019-05-12 16:49 | disposition home or self-care (01) ==
LOC: ER 13:34
DX: R07.89 Other chest pain (principal); M54.2 Cervicalgia; E78.00 Pure hypercholesterolemia, unspecified; I10 Essential (primary) hypertension; G89.29 Other chronic pain; F17.210 Nicotine dependence, cigarettes, uncomplicated; Z90.49 Acquired absence of other specified parts of digestive tract; Z98.51 Tubal ligation status; Z88.5 Allergy status to narcotic agent
CPT/HCPCS: 36415; 70490; 71045; 80053; 83735; 84484; 85025; 93005; 99284

== ENCOUNTER 2019-06-04 19:29 | Emergency (ER) | payer MEDICAID ==
[~2019-06-04] VITALS: Ht 154.9 cm; Wt 97.0 kg
[~2019-06-04 19:29] MED LIST changes: +ONDA4TAB12 PO
[2019-06-04 20:03] VITALS: BP 140/95
== END 2019-06-04 20:12 | disposition home or self-care (01) ==
LOC: ER 19:30
DX: K52.1 Toxic gastroenteritis and colitis (principal); T43.215A Adverse effect of selective serotonin and norepinephrine reuptake inhibitors, initial encounter; E78.00 Pure hypercholesterolemia, unspecified; I10 Essential (primary) hypertension; G89.29 Other chronic pain; F41.9 Anxiety disorder, unspecified; F32.9 Major depressive disorder, single episode, unspecified; F10.99 Alcohol use, unspecified with unspecified alcohol-induced disorder; Z87.442 Personal history of urinary calculi; Z90.49 Acquired absence of other specified parts of digestive tract; Z98.51 Tubal ligation status; Z88.5 Allergy status to narcotic agent; Z88.8 Allergy status to other drugs, medicaments and biological substances; Z79.899 Other long term (current) drug therapy; Y90.9 Presence of alcohol in blood, level not specified; Y92.89 Other specified places as the place of occurrence of the external cause
CPT/HCPCS: 99281

== ENCOUNTER 2019-11-10 07:44 | Emergency (ER) | payer MEDICAID ==
[~2019-11-10] VITALS: Ht 154.9 cm; Wt 100.0 kg
[2019-11-10] MEDS ORDERED: sucralfate 1gm/10ml UD suspension PO STA (08:52)
[2019-11-10] MEDS ORDERED: triamcinolone acetonide 40mg/ml inj IM ONE (08:55)
[2019-11-10] MEDS ORDERED: ketorolac trometh inj. 60 MG/2 ML VIAL IM ONE (08:55)
[2019-11-10] MEDS ORDERED: mag hydrox/Alum hydrox/simeth 30ml oral suspension PO ONE (08:55)
[2019-11-10] MEDS ORDERED: LIDOcaine Viscous 15ml cup MM ONE (08:55)
[2019-11-10 09:20] VITALS: BP 108/64
== END 2019-11-10 09:20 | disposition home or self-care (01) ==
LOC: ER 07:45
DX: R07.89 Other chest pain (principal); G62.9 Polyneuropathy, unspecified; E78.00 Pure hypercholesterolemia, unspecified; I10 Essential (primary) hypertension; G89.29 Other chronic pain; F41.9 Anxiety disorder, unspecified; F32.9 Major depressive disorder, single episode, unspecified; Z87.442 Personal history of urinary calculi; Z90.49 Acquired absence of other specified parts of digestive tract; Z98.51 Tubal ligation status; Z72.89 Other problems related to lifestyle; Z88.5 Allergy status to narcotic agent; Z88.8 Allergy status to other drugs, medicaments and biological substances; Z79.899 Other long term (current) drug therapy
CPT/HCPCS: 71045; 93005; 96372; 99284; J1885; J3301

== ENCOUNTER 2020-02-19 22:09 | Emergency (ER) | payer MEDICAID ==
[~2020-02-19] VITALS: Ht 154.9 cm; Wt 100.0 kg
[2020-02-19] MEDS ORDERED: ondansetron 4mg rapidly disintigrating tab PO ONE (22:45)
[2020-02-19 23:25] LABS: BASOPHILS # (AUTO) 0.1 X10'3 (0-0.2); BASOPHILS % (AUTO) 1.3 % (0-1); EOSINOPHILS # (AUTO) 0.1 X10'3 (0-0.9); EOSINOPHILS % (AUTO) 1.5 % (0-6); HEMATOCRIT 35.5 % (35.0-45.0); HEMOGLOBIN 12.4 g/dl (12.0-16.0); LYMPHOCYTES # (AUTO) 2.7 X10'3 (1.1-4.8); LYMPHOCYTES % (AUTO) 28.2 % (21-51); MEAN CORPUSCULAR HGB CONC 34.8 g/dL (33.0-36.5); MEAN PLATELET VOLUME 7.7 FL (7.4-10.4); MONOCYTES # (AUTO) 0.5 X10'3 (0-0.9); MONOCYTES % (AUTO) 4.9 % (2-12); NEUTROPHILS # (AUTO) 6.2 X10'3 (1.8-7.7); NEUTROPHILS % (AUTO) 64.1 % (42-75); PLATELET COUNT 314 X10'3 (140-440); RED BLOOD COUNT 3.74 X10'6 (4.20-5.60); RED CELL DISTRIBUTION WIDTH 12.9 % (11.5-14.5); WHITE BLOOD COUNT 9.7 X10'3 (4.5-11.0)
[2020-02-19 23:41] LABS: ALBUMIN 3.7 G/DL (3.4-5.0); ANION GAP 10 (8-16); BLOOD UREA NITROGEN 11 MG/DL (7-18); BUN/CREATININE RATIO 14.5 (6.6-38.0); CALCIUM 8.6 MG/DL (8.5-10.1); CHLORIDE 101 MMOL/L (99-107); CREATININE 0.76 MG/DL (0.40-0.90); GLUCOSE 88 MG/DL (70-104); POTASSIUM 3.6 MMOL/L (3.5-5.1); SODIUM 139 MMOL/L (135-145); TOTAL CARBON DIOXIDE 28.2 MMOL/L (24-32); TROPONIN I < 0.04 NG/ML (0.0-0.05); eGFR 84 ML/MIN
[2020-02-19 23:43] VITALS: BP 132/94
[2020-02-20] MEDS ORDERED: ONDA4TAB6 PO (00:26)
--- NOTE | 2020-02-20 00:26 | NUR ---
relieving RN for break, pt is resting quietly on gurney,
== END 2020-02-20 00:47 | disposition home or self-care (01) ==
LOC: ER 22:10
DX: R42 Dizziness and giddiness (principal); R51 Headache; K02.9 Dental caries, unspecified; R68.84 Jaw pain; R11.0 Nausea; E78.00 Pure hypercholesterolemia, unspecified; I10 Essential (primary) hypertension; E11.9 Type 2 diabetes mellitus without complications; G89.29 Other chronic pain; F41.9 Anxiety disorder, unspecified; F32.9 Major depressive disorder, single episode, unspecified; Z90.49 Acquired absence of other specified parts of digestive tract; Z98.51 Tubal ligation status; Z72.89 Other problems related to lifestyle; Z87.442 Personal history of urinary calculi; Z88.5 Allergy status to narcotic agent; Z88.8 Allergy status to other drugs, medicaments and biological substances; Z79.899 Other long term (current) drug therapy
CPT/HCPCS: 36415; 80048; 84484; 85025; 93005; 99284

== ENCOUNTER 2020-05-10 16:45 | Emergency (ER) | payer MEDICAID ==
[~2020-05-10] VITALS: Ht 154.9 cm; Wt 90.9 kg
[~2020-05-10 16:45] MED LIST changes: +ONDA4TAB6 PO
[2020-05-10 17:48] LABS: BASOPHILS # (AUTO) 0.1 X10'3 (0-0.2); BASOPHILS % (AUTO) 0.7 % (0-1); EOSINOPHILS # (AUTO) 0.2 X10'3 (0-0.9); EOSINOPHILS % (AUTO) 1.3 % (0-6); HEMOGLOBIN 12.8 g/dl (12.0-16.0); LYMPHOCYTES # (AUTO) 3.2 X10'3 (1.1-4.8); MEAN CORPUSCULAR HEMOGLOBIN 31.8 PG (27.0-31.0); MEAN CORPUSCULAR HGB CONC 33.6 g/dL (33.0-36.5); MEAN CORPUSCULAR VOLUME 94.6 FL (78-98); MEAN PLATELET VOLUME 7.3 FL (7.4-10.4); MONOCYTES # (AUTO) 0.7 X10'3 (0-0.9); MONOCYTES % (AUTO) 5.4 % (2-12); NEUTROPHILS # (AUTO) 8.3 X10'3 (1.8-7.7); NEUTROPHILS % (AUTO) 66.6 % (42-75); PLATELET COUNT 329 X10'3 (140-440); RED BLOOD COUNT 4.02 X10'6 (4.20-5.60); RED CELL DISTRIBUTION WIDTH 13.8 % (11.5-14.5); WHITE BLOOD COUNT 12.5 X10'3 (4.5-11.0)
[2020-05-10 17:50] LABS: CLARITY,URINE CLEAR (Clear); COLOR,URINE YELLOW (Yellow); GLUCOSE, URINE NEGATIVE (Neg); KETONES,URINE NEGATIVE (Neg); LEUKOCYTE ESTERASE ,URINE NEGATIVE (Neg); NITRITES, URINE NEGATIVE (Neg); OCCULT BLOOD,URINE SMALL (Neg); PH,URINE 6.5 (4.8-8.0); PROTEIN,URINE NEGATIVE (Neg); UROBILINOGEN,URINE 0.2 E.U/dL (0.2-1.0)
[2020-05-10 17:56] LABS: UA COLLECTION TYPE CLN CATCH MIDSTREAM
[2020-05-10 17:57] LABS: BACTERIA,URINE NONE SEEN /HPF (Neg); MUCUS STRANDS FEW /LPF (Neg); RBC,URINE 0-2 /HPF (0-2); SQUAMOUS EPITHELIAL CELL,UR MODERATE /LPF (FEW); WBC,URINE 0-4 /HPF (0-4)
[2020-05-10 18:04] LABS: ALANINE AMINOTRANSFERASE 35 U/L (12-78); ALBUMIN 3.8 G/DL (3.4-5.0); ALKALINE PHOSPHATASE 82 IU/L (46-116); ANION GAP 10 (8-16); ASPARTATE AMINO TRANSFERASE 20 U/L (10-37); BILIRUBIN,TOTAL 0.3 MG/DL (0.1-1.0); BLOOD UREA NITROGEN 8 MG/DL (7-18); BUN/CREATININE RATIO 11.4 (6.6-38.0); CALCIUM 8.3 MG/DL (8.5-10.1); CHLORIDE 102 MMOL/L (99-107); GLUCOSE 97 MG/DL (70-104); LIPASE 69 U/L (73-393); POTASSIUM 3.8 MMOL/L (3.5-5.1); SODIUM 140 MMOL/L (135-145); TOTAL PROTEIN 7.6 G/DL (6.4-8.2); eGFR > 90 ML/MIN
[2020-05-10] MEDS ORDERED: pantoprazole 40mg Tablet.DR PO ONE (18:25)
[2020-05-10] MEDS ORDERED: ondansetron 4mg rapidly disintigrating tab PO ONE (18:25)
[2020-05-10] MEDS ORDERED: ONDA8TAB13 PO (18:58)
[2020-05-10 19:16] VITALS: BP 134/87
== END 2020-05-10 19:24 | disposition home or self-care (01) ==
LOC: ER 16:45
DX: R05 Cough (principal); R06.02 Shortness of breath; R11.10 Vomiting, unspecified; Z20.828 Contact with and (suspected) exposure to other viral communicable diseases; E78.00 Pure hypercholesterolemia, unspecified; I10 Essential (primary) hypertension; E11.9 Type 2 diabetes mellitus without complications; G89.29 Other chronic pain; F41.9 Anxiety disorder, unspecified; F32.9 Major depressive disorder, single episode, unspecified; F17.200 Nicotine dependence, unspecified, uncomplicated; Z87.442 Personal history of urinary calculi; Z87.440 Personal history of urinary (tract) infections; Z90.49 Acquired absence of other specified parts of digestive tract; Z98.51 Tubal ligation status; Z72.89 Other problems related to lifestyle; Z88.5 Allergy status to narcotic agent; Z88.8 Allergy status to other drugs, medicaments and biological substances; Z79.899 Other long term (current) drug therapy
CPT/HCPCS: 36415; 71045; 80053; 81001; 83690; 85025; 87635; 93005; 99285

== ENCOUNTER 2020-11-14 07:27 | Outpatient (CLI) | payer MEDICAID ==
[2020-11-14] VITALS (17 sets, daily range): BP systolic 107–131; BP diastolic 50–91
[~2020-11-14 07:27] MED LIST changes: +ONDA8TAB13 PO
== END 2020-11-14 23:59 | disposition home or self-care (01) ==
LOC: CARD DIAG 07:27
PROVIDERS: ATTEND Nurse Practitioner Family
DX: R42 Dizziness and giddiness (principal)
CPT/HCPCS: 93660

== ENCOUNTER 2020-12-23 04:33 | Emergency (ER) | payer MEDICAID ==
[~2020-12-23] VITALS: Ht 154.9 cm; Wt 63.6 kg
[2020-12-23 05:08] LABS: COLOR,URINE YELLOW (Yellow); GLUCOSE, URINE NEGATIVE (Neg); KETONES,URINE NEGATIVE (Neg); LEUKOCYTE ESTERASE ,URINE TRACE (Neg); NITRITES, URINE NEGATIVE (Neg); OCCULT BLOOD,URINE TRACE-INTACT (Neg); PROTEIN,URINE NEGATIVE (Neg)
[2020-12-23 05:09] LABS: URINE HCG NEGATIVE (NEG)
[2020-12-23 05:32] LABS: CLARITY,URINE SLIGHTLY CLOUDY (Clear); UA COLLECTION TYPE CLN CATCH MIDSTREAM
[2020-12-23 05:33] LABS: BACTERIA,URINE FEW /HPF (Neg); RBC,URINE 0-2 /HPF (0-2); SQUAMOUS EPITHELIAL CELL,UR MODERATE /LPF (FEW); WBC,URINE 0-4 /HPF (0-4)
[2020-12-23 05:51] LABS: BASOPHILS % (AUTO) 0.5 % (0-1); EOSINOPHILS # (AUTO) 0.2 X10'3 (0-0.9); EOSINOPHILS % (AUTO) 2.9 % (0-6); HEMOGLOBIN 12.3 g/dl (12.0-16.0); LYMPHOCYTES # (AUTO) 1.7 X10'3 (1.1-4.8); LYMPHOCYTES % (AUTO) 24.8 % (21-51); MEAN CORPUSCULAR HEMOGLOBIN 35.2 PG (27.0-31.0); MEAN CORPUSCULAR HGB CONC 34.1 g/dL (33.0-36.5); MEAN CORPUSCULAR VOLUME 103.2 FL (78-98); MEAN PLATELET VOLUME 8.3 FL (7.4-10.4); MONOCYTES # (AUTO) 0.4 X10'3 (0-0.9); MONOCYTES % (AUTO) 5.8 % (2-12); NEUTROPHILS # (AUTO) 4.4 X10'3 (1.8-7.7); PLATELET COUNT 224 X10'3 (140-440); RED BLOOD COUNT 3.49 X10'6 (4.20-5.60); RED CELL DISTRIBUTION WIDTH 15.7 % (11.5-14.5); WHITE BLOOD COUNT 6.7 X10'3 (4.5-11.0)
[2020-12-23 05:58] LABS: ALANINE AMINOTRANSFERASE 65 U/L (12-78); ALBUMIN 3.1 G/DL (3.4-5.0); ALKALINE PHOSPHATASE 52 IU/L (46-116); ANION GAP 9 (8-16); ASPARTATE AMINO TRANSFERASE 43 U/L (10-37); BILIRUBIN,TOTAL 0.8 MG/DL (0.1-1.0); BLOOD UREA NITROGEN 10 MG/DL (7-18); BUN/CREATININE RATIO 15.9 (6.6-38.0); CALCIUM 7.8 MG/DL (8.5-10.1); CHLORIDE 105 MMOL/L (99-107); CREATININE 0.63 MG/DL (0.40-0.90); GLUCOSE 88 MG/DL (70-104); POTASSIUM 3.1 MMOL/L (3.5-5.1); SODIUM 141 MMOL/L (135-145); TOTAL CARBON DIOXIDE 26.8 MMOL/L (24-32); TOTAL PROTEIN 6.1 G/DL (6.4-8.2); eGFR > 90 ML/MIN
[2020-12-23 06:02] LABS: TROPONIN I < 0.04 NG/ML (0.0-0.05)
[2020-12-23 06:08] LABS: HCG SERUM QL NEGATIVE
--- NOTE | 2020-12-23 06:35 | NUR ---
pt waiting for dr to be seen,c/o nausea not vomiting ,talking on phone.
--- NOTE | 2020-12-23 06:53 | NUR ---
dr freedman at bedside.
[2020-12-23 06:56] VITALS: BP 138/86
[2020-12-23] MEDS ORDERED: CYCL-1 PO (06:59)
[2020-12-23] MEDS ORDERED: ibuprofen 200mg tablet PO ONE (07:00)
== END 2020-12-23 07:15 | disposition home or self-care (01) ==
LOC: ER 04:34
DX: R10.84 Generalized abdominal pain (principal); E78.00 Pure hypercholesterolemia, unspecified; I10 Essential (primary) hypertension; E11.9 Type 2 diabetes mellitus without complications; G89.29 Other chronic pain; F41.9 Anxiety disorder, unspecified; F32.9 Major depressive disorder, single episode, unspecified; F17.200 Nicotine dependence, unspecified, uncomplicated; Z87.442 Personal history of urinary calculi; Z87.440 Personal history of urinary (tract) infections; Z90.49 Acquired absence of other specified parts of digestive tract; Z98.51 Tubal ligation status; Z72.89 Other problems related to lifestyle; Z88.5 Allergy status to narcotic agent; Z88.8 Allergy status to other drugs, medicaments and biological substances; Z79.899 Other long term (current) drug therapy
CPT/HCPCS: 36415; 80053; 81001; 81025; 84484; 84703; 85025; 87088; 93005; 99284

== ENCOUNTER 2021-01-27 15:56 | Emergency (ER) | payer MEDICAID ==
[~2021-01-27 15:56] MED LIST changes: +CYCL-1 PO
== END 2021-01-27 18:56 | disposition left against medical advice (07) ==
LOC: ER 15:57
DX: N39.0 Urinary tract infection, site not specified (principal); Z53.21 Procedure and treatment not carried out due to patient leaving prior to being seen by health care provider

== ENCOUNTER 2021-02-13 09:06 | Emergency (ER) | payer MEDICAID ==
[~2021-02-13] VITALS: Ht 154.9 cm; Wt 61.0 kg
[2021-02-13] MEDS ORDERED: ondansetron/PF 4mg/2ml inj IV ONE (09:35)
[2021-02-13] MEDS ORDERED: normal saline 1000ml 1,000 ML IV ONE (09:35)
[2021-02-13 09:55] VITALS: BP 117/83
[2021-02-13 10:06] LABS: BASOPHILS # (AUTO) 0.1 X10'3 (0-0.2); BASOPHILS % (AUTO) 0.9 % (0-1); EOSINOPHILS # (AUTO) 0.2 X10'3 (0-0.9); EOSINOPHILS % (AUTO) 1.8 % (0-6); HEMATOCRIT 40.1 % (35.0-45.0); HEMOGLOBIN 13.6 g/dl (12.0-16.0); LYMPHOCYTES # (AUTO) 1.8 X10'3 (1.1-4.8); LYMPHOCYTES % (AUTO) 21.9 % (21-51); MEAN CORPUSCULAR HEMOGLOBIN 35.2 PG (27.0-31.0); MEAN CORPUSCULAR HGB CONC 33.9 g/dL (33.0-36.5); MEAN CORPUSCULAR VOLUME 103.9 FL (78-98); MEAN PLATELET VOLUME 7.4 FL (7.4-10.4); MONOCYTES # (AUTO) 0.5 X10'3 (0-0.9); MONOCYTES % (AUTO) 6.4 % (2-12); NEUTROPHILS # (AUTO) 5.8 X10'3 (1.8-7.7); PLATELET COUNT 288 X10'3 (140-440); RED BLOOD COUNT 3.86 X10'6 (4.20-5.60); RED CELL DISTRIBUTION WIDTH 12.8 % (11.5-14.5); WHITE BLOOD COUNT 8.4 X10'3 (4.5-11.0)
[2021-02-13 10:16] LABS: ALANINE AMINOTRANSFERASE 26 U/L (12-78); ALBUMIN 3.6 G/DL (3.4-5.0); ALKALINE PHOSPHATASE 80 IU/L (46-116); ANION GAP 9 (8-16); ASPARTATE AMINO TRANSFERASE 22 U/L (10-37); BILIRUBIN,TOTAL 0.5 MG/DL (0.1-1.0); BLOOD UREA NITROGEN 11 MG/DL (7-18); BUN/CREATININE RATIO 15.5 (6.6-38.0); CALCIUM 8.7 MG/DL (8.5-10.1); CHLORIDE 106 MMOL/L (99-107); CREATININE 0.71 MG/DL (0.40-0.90); GLUCOSE 89 MG/DL (70-104); LIPASE 136 U/L (73-393); POTASSIUM 3.8 MMOL/L (3.5-5.1); SODIUM 143 MMOL/L (135-145); TOTAL CARBON DIOXIDE 28.1 MMOL/L (24-32); TOTAL PROTEIN 7.2 G/DL (6.4-8.2); eGFR > 90 ML/MIN
[2021-02-13] MEDS ORDERED: ONDA4TAB12 PO (10:56)
== END 2021-02-13 11:06 | disposition home or self-care (01) ==
LOC: ER 09:07
DX: R11.2 Nausea with vomiting, unspecified (principal); Z20.822 Contact with and (suspected) exposure to COVID-19; R10.13 Epigastric pain; R42 Dizziness and giddiness; R19.7 Diarrhea, unspecified; E78.00 Pure hypercholesterolemia, unspecified; I10 Essential (primary) hypertension; E11.9 Type 2 diabetes mellitus without complications; G89.29 Other chronic pain; F41.9 Anxiety disorder, unspecified; F32.9 Major depressive disorder, single episode, unspecified; Z87.442 Personal history of urinary calculi; Z87.440 Personal history of urinary (tract) infections; Z90.49 Acquired absence of other specified parts of digestive tract; Z98.51 Tubal ligation status; Z72.89 Other problems related to lifestyle; Z88.5 Allergy status to narcotic agent; Z88.8 Allergy status to other drugs, medicaments and biological substances; Z79.899 Other long term (current) drug therapy
CPT/HCPCS: 36415; 80053; 83690; 85025; 87635; 96361; 96374; 99284; C9803; J2405; J7030

== ENCOUNTER → 2021-04-16 | Emergency (ER) | payer MEDICAID ==
[~2021-04-16] VITALS: Ht 154.9 cm; Wt 65.9 kg
[2021-04-16 10:18] VITALS: BP 120/90
== END | disposition left against medical advice (07) ==
LOC: ER 10:13
DX: R42 Dizziness and giddiness (principal); Z53.21 Procedure and treatment not carried out due to patient leaving prior to being seen by health care provider
CPT/HCPCS: 93005

== ENCOUNTER 2023-01-23 17:39 | Emergency (ER) | payer MEDICAID | END 2023-01-24 01:23 | disposition left against medical advice (07) | LOC: ER 17:39 | DX: N23 Unspecified renal colic (principal); Z53.21 Procedure and treatment not carried out due to patient leaving prior to being seen by health care provider ==

== ENCOUNTER 2023-07-20 13:11 | Emergency (ER) | payer MEDICAID ==
[~2023-07-20] VITALS: Ht 154.9 cm; Wt 65.0 kg
[2023-07-20 14:10] LABS: BASOPHILS # (AUTO) 0.1 X10'3 (0-0.2); BASOPHILS % (AUTO) 1.5 % (0-1); EOSINOPHILS # (AUTO) 0.2 X10'3 (0-0.9); EOSINOPHILS % (AUTO) 2.5 % (0-6); HEMOGLOBIN 12.2 g/dl (12.0-16.0); LYMPHOCYTES # (AUTO) 2.4 X10'3 (1.1-4.8); LYMPHOCYTES % (AUTO) 39.4 % (21-51); MEAN CORPUSCULAR HEMOGLOBIN 33.7 PG (27.0-31.0); MEAN CORPUSCULAR HGB CONC 33.8 g/dL (33.0-36.5); MEAN CORPUSCULAR VOLUME 99.7 FL (78-98); MEAN PLATELET VOLUME 6.7 FL (7.4-10.4); MONOCYTES # (AUTO) 0.4 X10'3 (0-0.9); MONOCYTES % (AUTO) 6.6 % (2-12); PLATELET COUNT 366 X10'3 (140-440); RED BLOOD COUNT 3.61 X10'6 (4.20-5.60); RED CELL DISTRIBUTION WIDTH 13.6 % (11.5-14.5)
[2023-07-20 14:44] LABS: ALBUMIN 3.9 G/DL (3.4-5.0); ANION GAP 7 (8-16); BLOOD UREA NITROGEN 12 MG/DL (7-18); BUN/CREATININE RATIO 18.8 (10.0-20.0); CHLORIDE 106 MMOL/L (99-107); CREATININE 0.64 MG/DL (0.40-0.90); GLUCOSE 91 MG/DL (70-104); POTASSIUM 4.2 MMOL/L (3.5-5.1); SODIUM 142 MMOL/L (135-145); TOTAL CARBON DIOXIDE 29.1 MMOL/L (24-32); eCRCL 86 ML/MIN; eGFR > 90 ML/MIN
[2023-07-20 14:55] LABS: PRO BRAIN NATRIURETIC PEPTIDE 38 PG/ML (0-125)
[2023-07-20] MEDS ORDERED: OMEP40CA21 PO (17:36)
[2023-07-20] MEDS: ketorolac trometh inj. 60 MG/2 ML VIAL IM ONE (17:47)
[2023-07-20 17:55] VITALS: TEMP 97.6
[2023-07-20 18:29] VITALS: BP 131/93; PULSE 66; RESP 16; O2SAT 100
== END 2023-07-20 18:31 | disposition home or self-care (01) ==
LOC: ER 13:11
DX: K29.00 Acute gastritis without bleeding (principal); E78.00 Pure hypercholesterolemia, unspecified; I10 Essential (primary) hypertension; E11.9 Type 2 diabetes mellitus without complications; Z88.8 Allergy status to other drugs, medicaments and biological substances; Z79.899 Other long term (current) drug therapy; Z90.49 Acquired absence of other specified parts of digestive tract; Z98.51 Tubal ligation status
CPT/HCPCS: 36415; 71045; 80048; 83880; 84484; 85025; 93005; 96372; 99285; J1885

== ENCOUNTER → 2023-11-23 | Outpatient (CLI) | payer MEDICAID ==
[~2023-11-23] MED LIST changes: +iohexol 300mg/ml 100ml inj. ONE
== END | disposition home or self-care (01) ==
LOC: RAD 08:39
PROVIDERS: ATTEND Nurse Practitioner Family
DX: D35.01 Benign neoplasm of right adrenal gland (principal); E27.8 Other specified disorders of adrenal gland; N20.0 Calculus of kidney; I70.90 Unspecified atherosclerosis; Z90.49 Acquired absence of other specified parts of digestive tract
CPT/HCPCS: 74178; J3490; Q9967

== ENCOUNTER 2023-12-27 10:15 | Outpatient (CLI) | payer MEDICAID ==
[~2023-12-27 10:15] MED LIST changes: +GADOTERATE MEGLUMINE 7.5 MMOL/15 ML VIAL IV ONE; +ONDA-243 PO; +ONDA-245 PO; -ONDA4TAB12 PO; -ONDA8TAB13 PO; -iohexol 300mg/ml 100ml inj. ONE
[2023-12-28] MEDS ORDERED: GADOTERATE MEGLUMINE 7.5 MMOL/15 ML VIAL IV ONE (18:02)
[2024-01-27] MEDS ORDERED: GADOTERATE MEGLUMINE 7.5 MMOL/15 ML VIAL IV ONE (08:00)
== END 2023-12-27 23:59 | disposition home or self-care (01) ==
LOC: MRI 10:15
PROVIDERS: ATTEND Registered Nurse
DX: R42 Dizziness and giddiness (principal); H53.8 Other visual disturbances; Z87.820 Personal history of traumatic brain injury
CPT/HCPCS: 70553; A9575